=== PATIENT | male | born 1985 | race Two or more races ===

== ENCOUNTER 2021-09-24 16:55 | Emergency (ER) | payer OTHER, SELFPAY ==
--- NOTE | ~2021-09-24 | XR_ITS ---
EXAMINATION: XR hand wrist RT CLINICAL INFORMATION: Right hand injury COMPARISON: None. TECHNIQUE: AP, lateral, oblique, and scaphoid views of the right hand and wrist FINDINGS: No fracture. Normal alignment. Normal mineralization. No radiopaque foreign body. No soft tissue abnormality seen. XR/XR hand wrist RT IMPRESSION: No acute osseous abnormality.
[2021-09-24 17:32] VITALS: BP 163/90; PULSE 98; RESP 17; O2SAT 98; BMI 32.5
--- NOTE | 2021-09-24 19:39 | ED.EXTPRO ---
HPI - Extremity Problem General Chief complaint: Extremity Injury, Upper Stated complaint: Hand pain/Injury Source: patient Mode of arrival: ambulatory Limitations: no limitations History of Present Illness HPI Narrative: Patient presents to the ED for right hand injury. 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 Patient denies any other trauma. Patient states pain in extremity ever since. Patient denies any swelling of extremity, redness, warmth, stiffness, numbness, hotness, coldness, or paralysis. Patient states mild ecchymosis on palm area Related Data Previous Rx's Medication Instructions Recorded naproxen 500 mg tablet 500 mg PO BID PRN 10 Days #20 tab 09/24/21 Allergies Allergy/AdvReac Type Severity Reaction Status Date / Time No Known Allergies Allergy Verified 09/24/21 17:32 Review of Systems Review of Systems: Yes all other systems are reviewed and are negative Constitutional: Constitutional: Reports as per HPI and Reports no additional constitutional complaints Eyes: Eyes: Reports as per HPI and Reports no additional eye complaints ENT: Reports system reviewed and no additional complaints, except as documented and Reports as per HPI Cardiovascular: Cardiovascular: Reports as per HPI and Reports no additional cardiovascular complaints Respiratory: Respiratory: Reports as per HPI and Reports no additional respiratory complaints Gastrointestinal: Gastrointestinal: Reports as per HPI and Reports no additional gastrointestinal complaints Musculoskeletal: Musculoskeletal: Reports no additional musculoskeletal complaints, Reports as per HPI and Reports arthralgias (Right hand pain) Integumentary/Breasts: Skin/Breast: Reports system reviewed and no additional complaints, except as docu and Reports as per HPI Neurologic: Reports system reviewed and no additional complaints, except as documented and Reports as per HPI Psychiatric: Psychiatric: Reports no additional psychiatric complaints and Reports as per HPI [facility] Past Medical History Medical History (Updated 09/25/21 @ 00:01 by Background Daemon) Sinusitis Social History Social History Advance Directives: No Advance Directives Information Provided: No Physical Exam Vital Signs: Vital Signs: Last Vital Signs Pulse 98 09/24/21 17:32 Resp 17 09/24/21 17:32 BP 163/90 H 09/24/21 17:32 Pulse Ox 98 09/24/21 17:32 Body Mass Index 32.5 Const: General: cooperative, healthy appearing, comfortable, no acute distress, well developed, alert, awake and Physically active Orientation/consciousness: patient oriented x3 HENMT: Head: Yes normal to inspection, Yes No palpable skull fracture present, Yes normocephalic, Yes atraumatic and No abrasion Eyes: General: appearance normal, both eyes and all related structures Neck: Neck: Yes normal visual inspection, Yes full ROM, Yes no lymphadenopathy, Yes no meningeal signs, Yes trachea midline, Yes supple, No anterior neck swelling and No tender Chest: Chest palpation & inspection: normal inspection of the chest and normal palpation of entire chest wall Resp: Effort & Inspection: normal respiratory effort and able to speak in complete sentences Auscultation: clear to auscultation bilaterally Cardio: Jugular venous distension: no JVD Heart sounds: S1 normal heart sound present and S2 normal heart sound present GI: Inspection: Yes normal to inspection and No abdominal wall ecchymosis Palpation (GI): Soft to palpation, not firm, nontender, no guarding and not rigid : General: No CVA tenderness and Yes no CVA tenderness Back/Spine/Pelvis: Back: no CVA tenderness, No CVA tenderness and No back tenderness Skin: General skin exam: no rashes or lesions noted and elasticity normal Neuro: General: patient oriented x3, gait normal, no meningeal signs and CN's II-XI intact bilaterally Cranial nerves: Yes CN's II-XII intact bilaterally Extrem: General: Yes normal to inspection and Yes full ROM Hand/finger images: 1. Tenderness on palpation. Negative for any ecchymosis, crepitus, erythema, or deformity. Positive for small abrasion. Motor/neuro/vascular exam intact. 2. Positive for slight ecchymosis. Negative for tenderness on palpation. Negative for erythema. Negative for any open wounds Psych: Appearance: grossly normal, well kempt and not disheveled Course Course Course Narrative: Patient is sent for hand x-ray. Reevaluation(s) Reevaluation #1: Hand x-ray negative for fracture. Diagnosis contusion. Patient given Kian wrap. Patient discharged with NSAIDs. Patient educated on icing 1st 24 hours. Time: 20:05 MDM - Extremity (Nontraumatic) MDM Narrative Medical decision making narrative: Hand contusion Discharge Plan Discharge Clinical Impression: Contusion of hand Patient Disposition: Home, Self-Care Instructions: Contusion in Adults (ED) Additional Instructions: Singh radiograf?a result? negativa por fractura. El diagn?stico es marcial contusi?n. Se recomienda hielo las primeras 24 horas, descanso y elevaci?n. Se le conceder?n d?as libres del trabajo. Puede usar el vendaje Kian wrap seg?n sea necesario. Ser? dado de dada con medicaci?n antiinflamatoria. Regrese al servicio de urgencias de inmediato si tiene hinchaz?n, enrojecimiento, jimena / decoloraci?n, dolor en el pecho, dificultad para respirar, secreci?n de pus, mal olor, fiebre, escalofr?os, calor, frialdad, entumecimiento / hormigueo, par?lisis de marcial extremidad o cualquier otro s?ntoma que le preocupe. Truman un seguimiento con singh PCP. Prescriptions: New naproxen 500 mg tablet 500 mg PO BID PRN (Reason: pain) 10 Days Qty: 20 RF: 0 Stand Alone Forms: Work/School Release Interventions: ED Discharge Assessment Last Done: 09/24/21 20:33 Discharge Date/Time: 09/24/21 20:34 Print Language: Burkinan
== END 2021-09-24 20:34 | disposition home or self-care (01) ==
PROVIDERS: Emergency Provider Emergency Medicine
DX: S60.221A Contusion of right hand, initial encounter (principal); M79.641 Pain in right hand; M25.531 Pain in right wrist; Y29.XXXA Contact with blunt object, undetermined intent, initial encounter; Y93.9 Activity, unspecified; Y92.9 Unspecified place or not applicable; Y99.0 Civilian activity done for income or pay; Z79.899 Other long term (current) drug therapy
CPT/HCPCS: 73110; 73130; 99283